=== PATIENT | male | born 1950 | race Caucasian/White ===

== ENCOUNTER 2018-11-11 09:32 | Outpatient (CLI) | payer OTHER ==
[~2018-11-11 09:32] MED LIST: Iopamidol 370 76% 100 ML VIAL ONE
--- NOTE | 2018-11-11 13:58 | CT ---
CT Chest Abd Pelvis W Con History: Follicular lymphoma Comparison: None. Findings: Thyroid is unremarkable. Port catheter tip sits at the inferior SVC. Multiple calcified sub carinal lymph nodes. Index prevascular lymph node axial image 21 has a short axis of 8 mm. Index paraesophageal lymph node axial image 6 has a short axis of 8 mm. Index paratracheal lymph node axial image 18 has a short axis of 9 mm. No axillary adenopathy. No supraclavicular adenopathy. No pericardial effusion. Focal area of linear scar superior segment right lower lobe with peripheral round scar which is appearance of a nodule that is felt to be benign measuring 5 mm coronal image 115. No confluent airspace consolidation or suspicious pulmonary nodule. Aortic contour is nonaneurysmal. Moderate atherosclerotic plaque. Prostate is enlarged. Moderate diverticular disease of the sigmoid colon without active current infla mmation. Suture the transverse colon. No abnormal hepatic mass. Portal vein is patent. Mild asymmetric hypertrophy of the left adrenal gland. No hydronephrosis. No intra-abdominal adenopat hy. No acute osseous abnormality. No suspicious osteolytic or osteoblastic lesions. The aortoiliac contour is normal. Impression: 1. Mild mediastinal adenopathy with index lesions as above. No adenopathy below the diaphragm. 2. 5 mm nodule along a focus of scar superior segment right lower lobe likely benign although recomme nd correlation with prior imaging. If there is none, close attention on follow-up imaging is recommended.
== END 2018-11-11 09:33 | disposition home or self-care (01) ==
LOC: SCSCT 09:32
PROVIDERS: ATTEND Internal Medicine Hematology & Oncology
DX: C82.09 Follicular lymphoma grade I, extranodal and solid organ sites (principal); R91.1 Solitary pulmonary nodule; R59.0 Localized enlarged lymph nodes
CPT/HCPCS: 71260; 74177; 82565; Q9967

== ENCOUNTER 2019-02-23 08:25 | Outpatient (CLI) | payer OTHER ==
--- NOTE | 2019-02-23 10:47 | MRI ---
MRI OF THE LEFT SHOULDER PERFORMED WITHOUT CONTRAST ENHANCEMENT: HISTORY: Left shoulder pain. History of a fall. FINDINGS: Some moderate arthrosis of the AC joint. There is fairly pronounced tendinosis at the junction of th e supra- and infraspinatus tendon with a moderately high-grade undersurface tear near the junction of the supra- and infraspinatus tendons. This appears to be a combination of tear, tendinosis, and gra nulation tissue. There is retraction of some of the undersurface fibers by as much as 2.1 cm. In th is area, I would estimate that the tear is greater than 50%. The superior fibers of the supraspinatu s tendon are intact. There is a high-grade almost complete tear of the subscapularis tendon. There appear to be a few fibers that are still intact. The intraarticular portion of the biceps tendon is torn. I do identify some fibers of the biceps tendon within the bicipital groove. Associated with the biceps tear is a severely truncated irregular appearance to the superior labrum a nd irregular tear involving the posterior superior and extending into the posterior inferior labrum. There is subchondral bony cystic change along the inferior margin of the glenoid associated with the se changes. Somewhat thickened appearance to the anterior band of the inferior glenohumeral ligament which also shows increased signal change. This would be suggestive of some straining possibly relat ed to the patient's fall. There are arthritic changes of the glenohumeral joint. No significant muscle atrophy is seen. IMPRESSION: 1. Moderately high-grade tear of the undersurface near the junction of the supra- and infraspinatus tendons. This appears to be a combination of a tear, tendinosis, and granulation tissue and involves greater than 50% of the thickness of the tendon. 2. High-grade almost complete tear of the subscapularis tendon. There appear to be a few thin fiber s that are probably still intact. There is also a tear of the biceps tendon. I do identify a portio n of the biceps tendon in the bicipital groove. 3. Degenerative changes of the glenohumeral joint space with an extensive degenerative-type tear inv olving the superior, posterior superior, and posterior inferior labrum extending into the inferior la adeline. POS: [facility]
== END 2019-02-23 08:26 | disposition home or self-care (01) ==
LOC: TBSIIMAG 08:25
PROVIDERS: ATTEND Orthopaedic Surgery
DX: M25.512 Pain in left shoulder (principal); M75.102 Unspecified rotator cuff tear or rupture of left shoulder, not specified as traumatic; S46.812A Strain of other muscles, fascia and tendons at shoulder and upper arm level, left arm, initial encounter; S46.212A Strain of muscle, fascia and tendon of other parts of biceps, left arm, initial encounter; M19.012 Primary osteoarthritis, left shoulder; S43.492A Other sprain of left shoulder joint, initial encounter